=== PATIENT | female | born 1995 | race Hispanic/Latino ===

== ENCOUNTER 2018-08-22 15:40 | Emergency (ER) | payer SELFPAY ==
[2018-08-22] MEDS ORDERED: MORPHINE 4 MG/ML SYR ONE ×2 (16:31→18:05)
[2018-08-22] MEDS ORDERED: NA CHLORIDE 0.9% 1,000 ML ONE (16:32)
[2018-08-22] MEDS ORDERED: TETANUS & DIPHTHERIA TOX,ADULT 0.5 ML VIAL ONE (16:32)
[2018-08-22] MEDS ORDERED: CLINDAMYCIN 900MG/D5W 900 MG/50 ML BAG IV ONE (16:49)
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
[2018-08-22 16:52] LABS: Absolute Lymphocytes (CBC) 1.4 K/uL (0.7-4.9); Absolute Monocytes 0.6 K/uL (0.1-1.3); Absolute Neutrophil 4.4 K/uL (1.8-8.0); Basophils % 0.6 % (0-1.3); Eosinophils % 0.9 % (0-4.4); Hematocrit 41.9 % (36.0-45.0); Lymphocytes % 21.3 % (15.3-44.8); MCH 29.5 pg (27.0-35.0); MPV 9.2 fL (7.6-11.3); Monocytes % 9.6 % (3.3-12.3); RBC Red Blood Cell Count 4.87 M/uL (3.86-4.86)
[2018-08-22 17:04] LABS: Potassium 3.5 mmol/L (3.5-5.1)
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
[2018-08-22] MEDS ORDERED: LIDOCAINE 1% W/EPI 1:100,000 MDV 50 ML VIAL ONE (18:12)
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
--- NOTE | 2018-08-23 00:09 | OP ---
Date of Procedure: 08/22/2018 Surgeon: Yumiko Rea MD Preoperative Diagnosis: Facial laceration. Postoperative Diagnosis: Facial laceration. Procedure: Repair of complex laceration with layered closure. Indication For Procedure: See above. Consent is obtained verbally from the patient. Description Of Procedure: The soft tissues around the laceration were injected with 1% lidocaine wit h epinephrine. A total of 6 mL was used. After time for effect, the wound was cleaned with Betadine in and around the laceration and the wound was then approximated using a layered closure. A 4-0 Darvin ryl deep sutures were placed in an interrupted fashion for approximation of the skin edges and to red uce tension on the wound. The skin was then closed in a running fashion with a 5-0 plain gut suture. The skin was cleaned and dried and dressed slightly with a gauze dressing. Complications: None. Specimens: None. Disposition: Wound care instructions were given verbally and the patient will follow up as dictated above. DONALDO/BRENT Voice ID: [id number] Report ID: [id number]
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
== END 2018-08-22 19:04 | disposition home or self-care (01) ==
LOC: ER 15:40
PROC: 0JQ10ZZ Repair Face Subcutaneous Tissue and Fascia, Open Approach (ICD-10-PCS; principal; 2018-08-22)
DX: S01.81XA Laceration without foreign body of other part of head, initial encounter (principal); S02.5XXA Fracture of tooth (traumatic), initial encounter for closed fracture; V49.40XA Driver injured in collision with unspecified motor vehicles in traffic accident, initial encounter; Z23 Encounter for immunization; Z72.0 Tobacco use
CPT/HCPCS: 36415; 70450; 70487; 70491; 71045; 76377; 80048; 85025; 90714; 96365; 96366; 96375; 99285; J7030; Q9967

== ENCOUNTER 2018-09-15 13:37 | Emergency (ER) | payer SELFPAY ==
[2018-09-15] MEDS ORDERED: ACETAMINOPHEN 325 MG TABLET ONE (14:33)
[2018-09-15] MEDS ORDERED: TETRACAINE HCL 0.5% 2ML OPTH ONE (14:33)
[2018-09-15] MEDS ORDERED: FLUORESCEIN SODIUM 0.6 MG/WRAP ONE ×2 (14:34→15:41)
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
== END 2018-09-15 15:52 | disposition home or self-care (01) ==
LOC: ER 13:37
DX: S05.01XA Injury of conjunctiva and corneal abrasion without foreign body, right eye, initial encounter (principal); S09.19XA Other specified injury of muscle and tendon of head, initial encounter; Y04.2XXA Assault by strike against or bumped into by another person, initial encounter
CPT/HCPCS: 70450; 99285

== ENCOUNTER 2019-02-05 16:24 | Emergency (ER) | payer OTHER, SELFPAY ==
--- OUTSIDE RECORDS SUMMARY | 2019-02-05 16:27 | XMS REPORT ---
:1995 [facility] Eduardo [address] [place] [id number] Care Team Providers Name Role Phone Unavailable Unavailable Unavailable Problems This patient has no known problems. Allergies, Adverse Reactions, Alerts This patient has no known allergies or adverse reactions. Medications This patient has no known medications.
--- NOTE | 2019-02-05 18:11 | EDPHYS ---
Physician Documentation [facility] Name: Bety Alejandra Age: 23 yrs Sex: Female : 1995 Arrival Date: 02/05/2019 Time: 16:30 Bed 28 Private MD: ED Physician El Ly HPI: 02/05 16:55 This 23 yrs old Female presents to ER via Ambulatory with complaints of kb Urinary Frequency. 16:55 The patient presents with urinary symptoms, dysuria, frequency. Onset: The kb symptoms/episode began/occurred 2 day(s) ago. Modifying factors: The symptoms are alleviated by nothing, the symptoms are aggravated by urinating. Associated signs and symptoms: Pertinent positives: dysuria, urinary frequency, Pertinent negatives: fever. Severity of symptoms: At their worst the symptoms were moderate, in the emergency department the symptoms are unchanged. The patient has not experienced similar symptoms in the past. The patient has not recently seen a physician. 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 - Social history:: Smoking status: Patient/guardian denies using tobacco. - Ebola Screening: : Patient denies exposure to infectious person Patient denies travel to an Ebola-affected area in the 21 days before illness onset. ROS: 16:52 Constitutional: Negative for fever, chills, and weight loss, Cardiovascular: Negative kb for chest pain, palpitations, and edema, Respiratory: Negative for shortness of breath, cough, wheezing, and pleuritic chest pain, Abdomen/GI: Negative for abdominal pain, nausea, vomiting, diarrhea, and constipation, Back: Negative for injury and pain, MS/Extremity: Negative for injury and deformity, Skin: Negative for injury, rash, and discoloration, Neuro: Negative for headache, weakness, numbness, tingling, and seizure. 16:52 : Positive for urinary symptoms, urinary frequency, burning with urination. Exam: 16:52 Constitutional: This is a well developed, well nourished patient who is awake, alert, kb and in no acute distress. Head/Face: Normocephalic, atraumatic. ENT: Nares patent. No nasal discharge, no septal abnormalities noted. Tympanic membranes are normal and external auditory canals are clear. Oropharynx with no redness, swelling, or masses, exudates, or evidence of obstruction, uvula midline. Mucous membranes moist. Neck: Trachea midline, no thyromegaly or masses palpated, and no cervical lymphadenopathy. Supple, full range of motion without nuchal rigidity, or vertebral point tenderness. No Meningismus. Chest/axilla: Normal chest wall appearance and motion. Nontender with no deformity. No lesions are appreciated. Cardiovascular: Regular rate and rhythm with a normal S1 and S2. No gallops, murmurs, or rubs. Normal PMI, no JVD. No pulse deficits. Respiratory: Lungs have equal breath sounds bilaterally, clear to auscultation and percussion. No rales, rhonchi or wheezes noted. No increased work of breathing, no retractions or nasal flaring. Skin: Warm, dry with normal turgor. Normal color with no rashes, no lesions, and no evidence of cellulitis. MS/ Extremity: Pulses equal, no cyanosis. Neurovascular intact. Full, normal range of motion. Neuro: Awake and alert, GCS 15, oriented to person, place, time, and situation. Cranial nerves II-XII grossly intact. Motor strength 5/5 in all extremities. Sensory grossly intact. Cerebellar exam normal. Normal gait. 16:52 Abdomen/GI: Inspection: abdomen appears normal, Bowel sounds: normal, in all quadrants, Palpation: soft, in all quadrants, mild abdominal tenderness, in the right lower quadrant and left lower quadrant, moderate abdominal tenderness, in the suprapubic area. Vital Signs: 16:49 Weight 71.67 kg; Height 5 ft. 3 in. (160.02 cm); Pain 10/10; ss 17:00 BP 105 / 67 Supine; Pulse 56; Resp 19 S; Temp 99; Pulse Ox 100% on R/A; rv 18:00 BP 110 / 72; Pulse 66; Resp 18; Pulse Ox 99% on R/A; rv 16:49 Body Mass Index 27.99 (71.67 kg, 160.02 cm) MDM: 16:40 Patient medically screened. kb 16:53 Data reviewed: vital signs, nurses notes. Data interpreted: Pulse oximetry: on room air kb is 100 %. Interpretation: normal. 17:32 Counseling: I had a detailed discussion with the patient and/or guardian regarding: the kb historical points, exam findings, and any diagnostic results supporting the discharge/admit diagnosis, lab results, the need for outpatient follow up, a family practitioner, to return to the emergency department if symptoms worsen or persist or if there are any questions or concerns that arise at home. 02/05 16:41 Order name: Urine Microscopic Only kb 02/05 16:56 Order name: Urine Dipstick--Ancillary (enter results); Complete Time: 18:20 eb 02/05 16:41 Order name: Urine Test (obtain specimen); Complete Time: 17:07 kb 02/05 16:57 Order name: Urine --Ancillary (enter results); Complete Time: 18:20 eb 02/05 16:41 Order name: Urine Dipstick-Ancillary (obtain specimen); Complete Time: 17:07 kb Administered Medications: 18:20 Drug: Macrobid 100 mg Route: PO; rv 18:21 Follow up: Response: Medication administered at discharge. rv 18:20 Drug: Pyridium 100 mg Route: PO; rv 18:20 Follow up: Response: Medication administered at discharge. rv Disposition: 02/06 07:15 Co-signature as Attending Physician, El Ly MD I agree with the assessment and kdr plan of care. Disposition: 02/05/19 18:10 Discharged to Home. Impression: Urinary tract infection, site not specified. - Condition is Stable. - Discharge Instructions: Urinary Tract Infection, Adult, [id number]. - Prescriptions for Pyridium 200 mg Oral Tablet - take 1 tablet by ORAL route every 8 hours for 3 days; 9 tablet. Macrobid 100 mg Oral Capsule - take 1 capsule by ORAL route every 12 hours for 7 days; 14 capsule. - Medication Reconciliation Form, Thank You Letter, Antibiotic Education, Prescription Opioid Use form. - Follow up: Emergency Department; When: As needed; Reason: Worsening of condition. Follow up: Private Physician; When: 2 - 3 days; Reason: Recheck today's complaints, Continuance of care, Re-evaluation by your physician. Signatures: Dispatcher [employer] Naa Bravo, RAJANI BELTRE-Ckb El Ly MD MD kdr Jazmine Keenan, RN RN ss Adán Chandler, RN RN rv Corrections: (The following items were deleted from the chart) 02/05 18:22 18:10 02/05/2019 18:10 Discharged to Home. Impression: Urinary tract infection, site rv not specified. Condition is Stable. Discharge Instructions: Urinary Tract Infection, Adult, [id number]. Prescriptions for Pyridium 200 mg Oral Tablet - take 1 tablet by ORAL route every 8 hours for 3 days; 9 tablet, Macrobid 100 mg Oral Capsule - take 1 capsule by ORAL route every 12 hours for 7 days; 14 capsule. and Forms are Medication Reconciliation Form, Thank You Letter, Antibiotic Education, Prescription Opioid Use. Follow up: Emergency Department; When: As needed; Reason: Worsening of condition. Follow up: Private Physician; When: 2 - 3 days; Reason: Recheck today's complaints, Continuance of care, Re-evaluation by your physician. kb
--- NOTE | 2019-02-05 18:11 | ER ---
Nurse's Notes [facility] Name: Bety Alejandra Age: 23 yrs Sex: Female : 1995 Arrival Date: 02/05/2019 Time: 16:30 Bed 28 Private MD: Diagnosis: Urinary tract infection, site not specified Presentation: 02/05 16:50 Presenting complaint: Patient states: burning with urination, urinary frequency and ss suprapubic discomfort x "a few days." Denies fever. Transition of care: patient was not received from another setting of care. Onset of symptoms was January 2019. Risk Assessment: Do you want to hurt yourself or someone else? Patient reports no desire to harm self or others. Initial Sepsis Screen: Does the patient meet any 2 criteria? No. Patient's initial sepsis screen is negative. Does the patient have a suspected source of infection? Yes: Dysuria/Frequency/Urgency/UTI. Care prior to arrival: None. 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 - Social history:: Smoking status: Patient/guardian denies using tobacco. - Ebola Screening: : Patient denies exposure to infectious person Patient denies travel to an Ebola-affected area in the 21 days before illness onset. Screenin:51 Abuse screen: Denies threats or abuse. Denies injuries from another. Nutritional ss screening: No deficits noted. Tuberculosis screening: Never had TB. Fall Risk None identified. Assessment: 16:51 General: Appears uncomfortable, Behavior is calm, cooperative. Pain: Complains of pain ss in suprapubic area Pain currently is 10 out of 10 on a pain scale. Pain began 2-3 days ago. Is continuous. Neuro: Level of Consciousness is awake, alert, obeys commands, Oriented to person, place, time, situation. Respiratory: Airway is patent Respiratory effort is even, unlabored, Respiratory pattern is regular, symmetrical. GI: Patient currently denies diarrhea, nausea, vomiting. : Reports burning with urination, urgency, urinary frequency. EENT: Nares are clear Oral mucosa is moist. Throat is clear. Derm: Skin is intact, is healthy with good turgor, Skin is pink, warm \\T\\ dry. normal. Vital Signs: 16:49 Weight 71.67 kg; Height 5 ft. 3 in. (160.02 cm); Pain 10/10; ss 17:00 BP 105 / 67 Supine; Pulse 56; Resp 19 S; Temp 99; Pulse Ox 100% on R/A; rv 18:00 BP 110 / 72; Pulse 66; Resp 18; Pulse Ox 99% on R/A; rv 16:49 Body Mass Index 27.99 (71.67 kg, 160.02 cm) ss ED Course: 16:30 Patient arrived in ED. ds1 16:40 Naa Tim FNP-C is [facility]. kb 16:40 El Ly MD is Attending Physician. kb 16:50 Triage completed. ss 16:51 Patient has correct armband on for positive identification. Bed in low position. Call ss light in reach. 17:00 Patient placed in an exam room, on a stretcher, on pulse oximetry, Patient notified of rv wait time. 18:12 No provider procedures requiring assistance completed. Patient did not have IV access ss during this emergency room visit. Administered Medications: 18:20 Drug: Macrobid 100 mg Route: PO; rv 18:21 Follow up: Response: Medication administered at discharge. rv 18:20 Drug: Pyridium 100 mg Route: PO; rv 18:20 Follow up: Response: Medication administered at discharge. rv Outcome: 18:10 Discharge ordered by MD. kb 18:21 Discharged to home ambulatory. rv 18:21 Condition: good 18:21 Discharge instructions given to patient, family, Instructed on discharge instructions, follow up and referral plans. medication usage, Demonstrated understanding of instructions, follow-up care, medications, Prescriptions given X 2. 18:22 Patient left the ED. rv Signatures: Naa Tim FNP-C FNP-Ckb Sanford, Demi ds1 Jazmine Keenan RN RN ss Adán Chandler RN RN rv Corrections: (The following items were deleted from the chart) 18:19 18:00 BP 105 / 67 Supine; Pulse 56bpm; Resp 19bpm; Spontaneous; Pulse Ox 100% RA; rv rv 18:20 18:00 BP 105 / 67 Supine; Pulse 56bpm; Resp 19bpm; Spontaneous; Pulse Ox 100% RA; Temp rv 99F; rv
[2019-02-05 18:19] LABS: Urine Specific Gravity >1.030 (1.005-1.030)
[2019-02-05 18:19] LABS: Urine Blood TRACE (NEG); Urine Glucose NEGATIVE (NEG); Urine Protein 2+ (NEG); Urine Specific Gravity >1.030 (1.005-1.030)
[2019-02-05] MEDS ORDERED: PHENAZOPYRIDINE 100MG TAB PO ONE (18:25)
[2019-02-05] MEDS ORDERED: NITROFURAN MACRO 100 MG CAP PO ONE (18:25)
[2019-02-05 18:36] LABS: Urine Bacteria 20-50 /HPF (<20); Urine Culture Reflex Order NOT NEEDED
== END 2019-02-05 18:22 | disposition home or self-care (01) ==
LOC: ER 16:24
DX: N39.0 Urinary tract infection, site not specified (principal)
CPT/HCPCS: 81003; 81015; 81025; 99283